=== PATIENT | female | born 1930 | race Caucasian/White ===

== ENCOUNTER 2016-07-06 21:29 | Inpatient (IN) | payer MEDICARE, OTHER ==
--- NOTE | ~2016-07-06 | HP ---
History And Physical [place] [id number] [facility] [place]. [address] NAME: GEORGINA WELDON : 30 STATUS : ADM IN PAT#: [id number] AGE: 86 ADM/REG DATE : 07/06/16 MR#: [id number] REPORT SERV DATE: 07/07/16 DICTATED BY: KELIN BEE DATE: 07/06/16 REPORT STATUS : Draft TRANSCRIBED BY: MODL DATE: 07/06/16 DATE OF ADMISSION: 07/06/2016 IDENTIFYING DATA: An 86-year-old white female, whose PCP is Dr. Dom Ziegler; harp regulator, Dr. Albaro Kaufman. CHIEF COMPLAINT: Dark stools. HISTORY OF PRESENT ILLNESS: This history of present illness is obtained by talking directly with the patient as well as with her two daughters at the bedside, and I reviewed [employer] and I also reviewed [facility] and their records that came with the patient from the [facility] Emergency Room. The patient's daughter states that she began having loose stools on 07/03/2016. They were red in color. Then over the next two days the 07/04/2016 and 07/05/2016, there was less quantity, but they changed to black color. Because of this and progressive leg edema, they brought her to [facility] Emergency Room. The leg edema has been there for at least a few weeks. They described that her PCP increased her Lasix to 40 mg b.i.d., but there really was not much change. The patient has had some diffuse vague mild abdominal pain for the last two to three days. She does not use [id number] anti-inflammatories, but she is on prescription Mobic and prescription Eliquis. I saw in admission H and P on 01/23/2002 when she was admitted with some bright red blood per rectum. That H and P mentioned that previously she had diverticular bleed, at that time, she had a transfusion and a colonoscopy which revealed hemorrhoids and diffuse diverticuli. Biopsies were taken of the erythematous area in the colon to rule out ischemic colitis. REVIEW OF SYSTEMS: Her weight has fluctuated. She has chronic leg pain. She has chronic stable shortness of breath, chronic slow urine stream. She has decreased appetite for the last two days. She wears oxygen 2 L at bedtime p.r.n. She denies fever, cough, chest pain, nausea, vomiting, dysuria, or headache. PAST MEDICAL HISTORY: She has a chart history of intolerance to methimazole and nitroglycerin. There is no history of diabetes, asthma, COPD, seizure, peptic ulcer, liver disease, chronic kidney disease, cancer, or sleep apnea. She had a coronary bypass in 2001. She has had paroxysmal atrial fibrillation and she has had previous bradycardia when she was on atenolol. She has had a multinodular goiter and had radioactive iodine in 2002. She has severe arthritis that has involved her spine, hips, and knees. She has failure to thrive as early as 2012. She had a good rehab for a while. Then in March of this year, she fell, broke her right femur, had surgical repair at [place]. She was in rehab then for about three months after that. She now lives at home again with family. She has hypertension. 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 [address] NAME: GEORGINA WELDON : 30 STATUS : ADM IN PAT#: [id number] AGE: 86 ADM/REG DATE : 07/06/16 MR#: [id number] REPORT SERV DATE: 07/07/16 DICTATED BY: KELIN BEE DATE: 07/06/16 REPORT STATUS : Draft TRANSCRIBED BY: MODKristal DATE: 07/06/16 anything more than just watch it at this time. She has had a hiatal hernia. She has had encephalopathy thought to be due to urinary tract infection. She has had TIAs and she is nearly deaf. HOME MEDICATIONS: Eliquis 5 mg b.i.d., Refresh Tears p.r.n., Colace 100 mg daily, Lasix 20 mg breakfast and lunch, Apresoline 50 mg b.i.d., [place] 5/325 at bedtime, lisinopril 40 mg daily, Ativan 0.5 mg b.i.d. for anxiety, Mobic 7.5 mg daily, Toprol-XL 50 mg daily, Prilosec 20 mg daily, KCl 20 mEq daily, Pravachol 40 mg at bedtime. PAST SURGICAL HISTORY: She has had coronary bypass, cholecystectomy, hysterectomy, tubal ligation, parotid biopsy, and right femur fracture repair. SOCIAL HISTORY: She has no tobacco or alcohol intake history. She is a housewife. She had approximately nine children from what I understand. She lives with family and she has some home health aide. She uses a walker and wheelchair. FAMILY HISTORY: Mother had a stroke. Father, they cannot recall what health problems he had. Her siblings, one of them at least had a liver malignancy. DIAGNOSTIC DATA: From [facility], sodium 132, potassium 3.9, chloride 97, CO2 is 27, BUN is 26, creatinine 1.4, glucose 114. The rest of the CMP was unremarkable other than calcium 8.6. White count 6.5, hemoglobin was 7.7, and by comparison, her hemoglobin here was 12.1 on 12/10/2015, platelets today are 259,000. Lactic acid 1.7. Stool guaiac positive. Urinalysis normal. Troponin 0.03. INR 1.99. PTT 52. D-dimer 579 which is elevated. B-natriuretic peptide 213 which is elevated. EKG done at the [facility] today at 1400 hours, it is regular, it is very difficult to see, but there are very small P waves, I think it is sinus rhythm. She has inferior Q-waves. She has some T-wave inversion in V1 through V3. Compared to her EKG of 06/17/2012, at that time, she was in atrial fibrillation. She did have Q-waves at that point in time. CT scan of the abdomen and pelvis done at [facility], the radiologist report after contrast just diverticuli, no abnormalities other than that. Chest x-ray at [facility], their report was cardiomegaly with some interstitial edema. PHYSICAL EXAMINATION: VITAL SIGNS: Temp is 98, pulse 72, respirations 18, blood pressure 140/62, O2 saturation is 98% on room air. General: Well-developed, older female, who appears at this time in no acute distress. HEENT: Head is atraumatic. Pupils are equal, round, and reactive to light. She appears to have cataract surgical changes. Extraocular motions are intact. No scleral icterus noted. Ears, externally unremarkable. No inflammatory changes noted, but she is extremely hard of hearing bilaterally. Nose, noninflamed externally. Septum midline. Nares patent. Mouth, moist. Good gag. No redness of the throat, gums, or lips. NECK: Supple. No lymph node or thyroid enlargement. The carotids have good pulses. No bruits. LUNGS: Clear. Good air flow. No wheezes, no rhonchi. Normal respiratory effort. History And Physical [address] [place]. [address] NAME: GEORGINA WELDON : 30 STATUS : ADM IN [facility]#: [id number] AGE: 86 ADM/REG DATE : 07/06/16 MR#: [id number] REPORT SERV DATE: 07/07/16 DICTATED BY: KELIN BEE DATE: 07/06/16 REPORT STATUS : Draft TRANSCRIBED BY: WAN DATE: 07/06/16 HEART: Regular rates and rhythm without murmur, gallop, click, or rub. ABDOMEN: Obese. Bowel sounds positive. Soft, nondistended, nontender except minimally in the right lower quadrant and difficult to reproduce. No mass. No organomegaly. No bruits. EXTREMITIES: No clubbing. No cyanosis. She has 3+ edema from her toes to her upper calves bilaterally, some mild erythema. No skin breakdown. No actively inflamed joints. NEUROLOGIC: Alert, oriented, cooperative with grossly normal motor and cranial nerves other than markedly diminished hearing. No Babinski. No clonus noted. ASSESSMENT: 1. Bright red blood per rectum. Then black stools consistent with the gastrointestinal bleed in a patient on Eliquis and Mobic. This could obviously be recurrent diverticular bleed. It could also be upper gastrointestinal bleed or neoplastic bleed or arteriovenous malformation. 2. Acute blood loss anemia. 3. Acute kidney injury in a patient who is taking anti-inflammatory, Mobic. She got contrast in the ER there today. 4. Bilateral leg edema, it could be venous insufficiency or congestive heart failure or chronic kidney disease. 5. See past medical history. PLAN: She is being admitted to the medical floor on telemetry. We will hold her Eliquis at this point in time. We will stop her Mobic. She does look like a good candidate for it anyway. We will consult GI and we will also by family's request consulting Cardiology. We will empirically put her on Protonix IV in case that was being upper GI bleed. I will hold her lisinopril at this point in time and follow up on her creatinine in the morning. RSG/MODL Kelin Bee M.D. / [id number] CC: MD FRANCIA Botello,DOM Kaufman M.D.
--- NOTE | ~2016-07-06 | DS ---
Discharge Summary [facility] [address] [place]. [address] NAME: GEORGINA WELDON : 30 STATUS : DIS IN PAT#: [id number] AGE: 86 ADM/REG DATE : 07/06/16 MR#: [id number] REPORT SERV DATE: 07/11/16 DICTATED BY: CHRISTI ONEIL DATE: 07/10/16 REPORT STATUS : Draft TRANSCRIBED BY: WAN DATE: 07/10/16 ADMISSION DATE: 07/07/2016 DISCHARGE DATE: 07/10/2016 CONDITION ON DISCHARGE: Stable. DISPOSITION: Discharged to home with Home health and home PT/OT. ADVICE ON DISCHARGE: To follow up with Dr. Kaufman, her puppet master, within the next three to four weeks. DIAGNOSES ON DISCHARGE: 1. Acute and severe recurrent lower gastrointestinal bleed from diverticulosis and hemorrhoids - it has resolved at this time and the patient has received few units of blood transfusion. 2. 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 This is stable with medications and EF is preserved with medications. 3. Chronic kidney disease stage 2, stable. 4. Paroxysmal atrial fibrillation. After discussing with family in detail, they strongly feel that the patient does not need to be on anticoagulants at this time because of the severe bleed that she had. They want to resume aspirin in about five to seven days and then see Dr. Kaufman in the next few weeks and then decide on whether to resume anticoagulation or not. This patient's CHADS-VASc Score is high and is at least 3 or more and family understands the risk of taking her off the anticoagulation, but they also are very worried about the GI bleed. At the same time, her HAS-BLED Score is also very high. Hence, at this time, I will leave it to Dr. Kaufman, her puppet master, to resume her anticoagulation or not within the next several weeks after discussing with the family again. For now, she will not be on any blood thinners. I have taken her off even Mobic and advised Tylenol only, twice a day only, p.r.n. only for arthritic pain. Family wants to resume baby aspirin and they can do that within the next five to seven days if no more bleeding is noted. The patient did undergo upper GI or upper endoscopy and lower endoscopy while in the hospital by Dr. Silva. EGD showed completely normal esophagus, stomach, and duodenum. However, the colonoscopy showed severe diffuse diverticulosis involving the entire colon and also internal hemorrhoids, which was probably responsible for the patient's profuse bleed at this time. DISCHARGE MEDICATIONS: Hence, the patient is being sent home in stable condition today and she will be on the following medications for now: She will resume Lasix 20 mg p.o. b.i.d., [place] 5/325 once at bedtime, Ativan 0.5 mg p.o. b.i.d., metoprolol succinate 50 mg once a day, Prilosec 20 mg once a day, potassium 20 mEq once a day, pravastatin 40 mg once a day, Apresoline or hydralazine 50 mg p.o. b.i.d., lisinopril will be held. Hence, the patient's meloxicam, lisinopril, and apixaban are all on hold right now. LABORATORY DATA: The most recent labs that I have on this patient include the following: Discharge Summary [address] [address] NAME: GEORGINA WELDON : 30 STATUS : DIS IN PAT#: [id number] AGE: 86 ADM/REG DATE : 07/06/16 MR#: [id number] REPORT SERV DATE: 07/11/16 DICTATED BY: CHRISTI ONEIL DATE: 07/10/16 REPORT STATUS : Draft TRANSCRIBED BY: MODL DATE: 07/10/16 Today on 07/10/2016, CBC shows a WBC count of 6.7, hemoglobin 10, hematocrit of 29.9, and platelets of 226. Electrolyte profile shows sodium 139, potassium 3.4 which is being corrected. BUN is 12, creatinine is 1.25. Potassium corrected now came back at 3.7, which is normal. Hence, the patient is being sent home in stable condition. I have also given a prescription for BENNY hose stockings and also subcutaneous compression devices as a prescription, so the patient can use both of these at home to further prevent DVTs. I have spent about 40 minutes in coordinating discharge care of this patient including face- to-face encounter and summarizing this discharge. AXEL/WAN Christi Oneil M.D. / [id number] CC: Ceasar Jimenez
--- NOTE | ~2016-07-06 | CN ---
Consultation Report [facility] [address] [place]. [address] NAME: GEORGINA WELDON : 30 STATUS : ADM IN PAT#: [id number] AGE: 86 ADM/REG DATE : 07/06/16 MR#: [id number] REPORT SERV DATE: 07/08/16 DICTATED BY: ADIA TRINIDAD DATE: 07/07/16 REPORT STATUS : Draft TRANSCRIBED BY: MODL DATE: 07/07/16 DATE OF CONSULTATION: 07/07/2016 HISTORY OF PRESENT ILLNESS: This is an 86-year-old white female, admitted with GI bleeding, both dark and bright red blood, on Eliquis. Also, she is having increased pedal edema with some diffuse abdominal cramping. SOCIAL HISTORY: Positive for nonsteroidals, Mobic. Negative for EtOH or nicotine. PAST MEDICAL HISTORY: History of diverticular bleed in 2001, history of coronary artery disease status post CAB, AFib. She has had goiter, treated with radioactive iodine several months ago, had right femur fracture with surgery, has history of hypertension, TIAs, positive guaiac in the ER, status post cholecystectomy, hysterectomy, tubal. FAMILY HISTORY: Negative for colon cancer. LABORATORY AND DIAGNOSTIC DATA: White count 6500, hemoglobin 7.7, platelets 255,000. INR 1.99. CT revealing diverticular disease. PHYSICAL EXAMINATION: GENERAL: Elderly, hard of hearing white female, but alert. HEENT: Anicteric. NECK: Negative. CHEST: Clear to percussion. HEART: Irregular rhythm. ABDOMEN: Soft, nontender. Bowel sounds are present. EXTREMITIES/NEUROLOGIC: Pertinent for being hard of hearing. ASSESSMENT: 1. Gastrointestinal bleed, dark stools, bright red blood. On Eliquis and Mobic. 2. History of diverticular bleed in the past. Hemoglobin 7.7. 3. Some abdominal pain, which is improving. 4. Coronary artery disease status post CAB, atrial fibrillation, congestive heart failure. 5. Recent right femur fracture with surgery. 6. Hypertension. 7. History of transient ischemic attack. 8. Acute renal insufficiency. SUGGESTION: 1. Agree with holding Mobic and Eliquis for now. 2. Continue Protonix. 3. Follow up H and H posttransfusion. 4. EGD later in the week and has been off Eliquis. We will follow with you. Thank you very much for the consultation. Consultation Report [facility] [address] [place] [address] [address] NAME: GEORGINA WELDON : 30 STATUS : ADM IN PAT#: [id number] AGE: 86 ADM/REG DATE : 07/06/16 MR#: [id number] REPORT SERV DATE: 07/08/16 DICTATED BY: ADIA TRINIDAD DATE: 07/07/16 REPORT STATUS : Draft TRANSCRIBED BY: WAN DATE: 07/07/16 DC/WAN Adia Trinidad M.D. / [id number] CC: Ceasar Jimenez ANDREW James C. Balvich, MD
--- NOTE | ~2016-07-06 | EGD ---
EGD REPORT [facility] [address] [place] [place] [address] NAME: GEORGINA WELDON : 30 STATUS : ADM IN PAT#: [id number] AGE: 86 ADM/REG DATE : 07/06/16 MR#: [id number] REPORT SERV DATE: 07/09/16 DICTATED BY: ADIA TRINIDAD DATE: 07/09/16 REPORT STATUS : Draft TRANSCRIBED BY: [employer] DATE: 07/09/16 [facility]oscopy Center Patient Name: Georgina Weldon Date of : 1930 Attending MD: ADIA TRINIDAD MD Procedure Date No Time: 07/09/2016 Procedure: Colonoscopy Indications: Hematochezia Medicines: as per anesthesia Complications: No immediate complications. Procedure: Pre-Anesthesia Assessment: - ASA Grade Assessment: III - A patient with severe systemic disease. After I obtained informed consent, the scope was passed under direct vision. Throughout the procedure, the patient's blood pressure, pulse, and oxygen saturations were monitored continuously. The PCF [id number] was introduced through the anus and advanced to the cecum, identified by appendiceal orifice and ileocecal valve. The colonoscopy was performed without difficulty. The patient tolerated the procedure. The quality of the bowel preparation was adequate to identify polyps. Findings: The perianal and digital rectal examinations were normal. Multiple small and large-mouthed diverticula were found in the sigmoid colon, in the descending colon, in the transverse colon and in the ascending colon. Internal hemorrhoids were found during endoscopy and were mild. Impression: - Diverticulosis in the sigmoid colon, in the descending colon, in the transverse colon and in the ascending colon. - Internal hemorrhoids. Recommendation: - Continue present medications. Procedure Code(s): --- Professional --- 22423, Colonoscopy, flexible, proximal to splenic flexure; diagnostic, with or without collection of specimen(s) by brushing or washing, with or without colon decompression (separate procedure) Diagnosis Code(s): --- Professional --- K64.8, Other hemorrhoids EGD REPORT [place] [address] [address] NAME: GEORGINA WELDON : 30 STATUS : ADM IN [facility]#: [id number] AGE: 86 ADM/REG DATE : 07/06/16 MR#: [id number] REPORT SERV DATE: 07/09/16 DICTATED BY: ADIA TRINIDAD. DATE: 07/09/16 REPORT STATUS : Draft TRANSCRIBED BY: [employer] DATE: 07/09/16 K57.30, Diverticulosis of large intestine without perforation or abscess without bleeding K92.1, Melena CPT copyright 2013 [employer]. All rights reserved. The codes documented in this report are preliminary and upon room service server review may be revised to meet current compliance requirements. ADIA TRINIDAD MD 07/09/2016 2:05 PM This report has been signed electronically. Number of Addenda: 0 Note Initiated On: 07/09/2016 1:29 PM Scope Withdrawal Time 0 hours 7 minutes 29 seconds [address] [id number]
--- NOTE | ~2016-07-06 | EGD ---
EGD REPORT [facility] [address] [place] [address] NAME: GEORGINA WELDON : 30 STATUS : ADM IN PAT#: [id number] AGE: 86 ADM/REG DATE : 07/06/16 MR#: [id number] REPORT SERV DATE: 07/09/16 DICTATED BY: ADIA TRINIDAD DATE: 07/09/16 REPORT STATUS : Draft TRANSCRIBED BY: [employer] DATE: 07/09/16 [facility] Center Patient Name: Georgina Weldon Date of : 1930 Attending MD: ADIA TRINIDAD MD Procedure Date No Time: 07/09/2016 Procedure: Upper GI endoscopy Indications: Hematochezia, Melena Medicines: as per anesthesia Complications: No immediate complications. Procedure: Pre-Anesthesia Assessment: - ASA Grade Assessment: III - A patient with severe systemic disease. After obtaining informed consent, the endoscope was passed under direct vision. Throughout the procedure, the patient's blood pressure, pulse, and oxygen saturations were monitored continuously. The GIF H190 [id number] was introduced through the mouth, and advanced to the third part of duodenum. The upper GI endoscopy was accomplished without difficulty. The patient tolerated the procedure. Findings: The examined esophagus was normal. The entire examined stomach was normal. The cardia and gastric fundus were normal on retroflexion. The examined duodenum was normal. Impression: - Normal esophagus. - Normal stomach. - Normal examined duodenum. Recommendation: - Continue present medications. Procedure Code(s): --- Professional --- 55515, Esophagogastroduodenoscopy, flexible, transoral; diagnostic, including collection of specimen(s) by brushing or washing, when performed (separate procedure) Diagnosis Code(s): --- Professional --- K92.1, Melena CPT copyright 2013 [employer]. All rights reserved. EGD REPORT [facility] [address] [address] NAME: GEORGINA WELDON : 30 STATUS : ADM IN [facility]#: [id number] AGE: 86 ADM/REG DATE : 07/06/16 MR#: [id number] REPORT SERV DATE: 07/09/16 DICTATED BY: ADIA TRINIDAD. DATE: 07/09/16 REPORT STATUS : Draft TRANSCRIBED BY: [employer] DATE: 07/09/16 The codes documented in this report are preliminary and upon diesel engine pipe fitter review may be revised to meet current compliance requirements. ADIA TRINIDAD MD 07/09/2016 1:42 PM This report has been signed electronically. Number of Addenda: 0 Note Initiated On: 07/09/2016 1:25 PM Scope Withdrawal Time 0 hours 0 minutes 0 seconds [address] [id number]
--- NOTE | ~2016-07-06 | CN ---
Consultation Report [facility] [address] [place]. [address] NAME: GEORGINA WELDON : 30 STATUS : ADM IN PAT#: [id number] AGE: 86 ADM/REG DATE : 07/06/16 MR#: [id number] REPORT SERV DATE: 07/07/16 DICTATED BY: ROXANNE JACOBS DATE: 07/07/16 REPORT STATUS : Draft TRANSCRIBED BY: WAN DATE: 07/07/16 CARDIOLOGY CONSULTATION NOTE DATE OF CONSULTATION: 07/07/2016 REASON FOR CONSULTATION: Acute systolic heart failure and acute GI bleed in a patient with known coronary heart disease and paroxysmal atrial fibrillation. HISTORY OF PRESENT ILLNESS: Ms. Weldon is an 86-year-old woman, who is a patient of Dr. Albaro Kaufman. The patient has a history of coronary artery disease, status post coronary artery bypass grafting surgery in the year 2010. Her left ventricular ejection fraction was most recently estimated at 40% by cardiac catheterization. The patient is a poor historian, being extremely hard of hearing. Her daughter is at bedside however. The patient apparently has no known history of congestive heart failure. The patient was in her usual state of health until approximately two weeks ago. She began develop worsening shortness of breath and lower extremity edema. The patient is using oxygen at night. The patient apparently has had bright red blood per rectum about two weeks ago as well, though this resolved. The patient later developed dark black tarry stool consistent with melena. She presented to [facility] Emergency Room with generalized weakness and was found to have severe anemia. The patient had guaiac-positive stool. She has been referred to [facility] for further workup for suspected acute GI bleed. At this time, the patient is resting quietly. She denies acute shortness of breath. She denies chest pain. PAST MEDICAL HISTORY: 1. Coronary artery disease, status post coronary artery bypass grafting surgery. 2. Paroxysmal atrial fibrillation. 3. History of previous diverticular bleeding. 4. Osteoarthritis. 5. Chronic hearing loss. 6. Multinodular goiter, status post radioactive iodine ablation. 7. Hypertension. 8. Ischemic cardiomyopathy with baseline ejection fraction of 40%. 9. Transient ischemic attack. PAST SURGICAL HISTORY: 1. Coronary artery bypass grafting surgery in the year 2001. The patient apparently had 3- vessel bypass including a TABOR to lad, saphenous vein graft to the obtuse marginal, and saphenous vein graft to the right posterior descending artery. The patient underwent coronary angiography in 2010 showing the TABOR graft was atretic, though with no significant high-grade disease of the left anterior descending excepting a diagonal branch. The patient's other two bypass grafts were patent at that time. 2. Femoral fracture, status post repair. 3. Biopsy of right parotid tumor. 4. The patient has had cholecystectomy, hysterectomy, bilateral tubal ligation. Consultation Report [address] [place]. [address] NAME: GEORGINA WELDON : 30 STATUS : ADM IN PAT#: [id number] AGE: 86 ADM/REG DATE : 07/06/16 MR#: [id number] REPORT SERV DATE: 07/07/16 DICTATED BY: ROXANNE JACOBS DATE: 07/07/16 REPORT STATUS : Draft TRANSCRIBED BY: WAN DATE: 07/07/16 FAMILY HISTORY: Negative for early coronary heart disease or sudden cardiac . SOCIAL HISTORY: The patient has no significant history of tobacco, alcohol, or drug use. 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 ALLERGIES: THE PATIENT HAS DOCUMENTED ALLERGIES TO METHIMAZOLE AND NITROGLYCERIN. HOME MEDICATIONS: 1. Eliquis 5 mg p.o. twice daily. 2. Artificial tears to both eyes as needed. 3. Colace 100 mg p.o. q.a.m. 4. Lasix 20 mg p.o. q.a.m. 5. Hydralazine 50 mg p.o. twice daily. 6. Hydrocodone/acetaminophen one p.o. at bedtime. 7. Lisinopril 40 mg p.o. at bedtime. 8. Ativan 0.5 mg p.o. twice daily. 9. Mobic 7.5 mg p.o. q.a.m. 10.Toprol-XL 50 mg p.o. q.a.m. 11.Omeprazole 20 mg p.o. q.a.m. 12.Potassium chloride 20 mEq p.o. q.a.m. 13.Pravachol 40 mg p.o. at bedtime. REVIEW OF SYSTEMS: An abbreviated review of systems was performed, as the patient is a very difficult historian being quite hard of hearing. However this is noncontributory except for the pertinent positives and negatives noted in the history of present illness above. PHYSICAL EXAMINATION: VITAL SIGNS: Temperature is 97.4 degrees Fahrenheit, blood pressure is 135/62 mmHg, heart rate is 64 beats per minute and regular, respirations 18, and oxygen saturation is 96% on 2 L nasal cannula. CONSTITUTIONAL: The patient is an obese elderly white woman, who is asleep on my initial exam, but easily arousable. She is in no acute distress. EYES: PERRL, EOMI, clear conjunctiva. HEAD/MNT: NCAT with moist mucous membranes and grossly normal hard and soft palate. NECK: Supple with no obvious thyromegaly or lymphadenopathy CARDIOVASCULAR: There is a regular rhythm with a normal S1 and a physiologically split second heart sound. The jugular venous pressure does appear to be elevated to approximately 10-12 cm. No significant murmurs are noted. PULMONARY: Grossly clear to auscultation bilaterally with no wheezing, rales, rhonchi, or dullness to percussion noted. ABDOMINAL: Soft, non-tender, non-distended with no hepatosplenomegaly noted. EXTREMITIES: There is 2+ pitting edema below the knees bilaterally. No clubbing or Consultation Report [address] [address] NAME: GEORGINA WELDON : 30 STATUS : ADM IN [facility]#: [id number] AGE: 86 ADM/REG DATE : 07/06/16 MR#: [id number] REPORT SERV DATE: 07/07/16 DICTATED BY: ROXANNE JACOBS DATE: 07/07/16 REPORT STATUS : Draft TRANSCRIBED BY: WAN DATE: 07/07/16 cyanosis is noted. MUSCULOSKELETAL: Grossly normal strength and range of motion in all extremities INTEGUMENTARY: Skin appears intact with no bruises, wounds or active lesions noted NEURO/PSYC: Alert and oriented x3, with no dysarthria, facial droop or lateralizing weakness noted. DIAGNOSTIC STUDIES: 12-lead EKG: The patient's 12-lead EKG from [facility]'s ER shows normal sinus rhythm with evidence of inferoposterior myocardial infarction and no other acute changes. In comparison to a previous tracing, the patient previously has had a right bundle-branch block which is not present on the current EKG. The inferoposterior ND is old. Chest x-ray: Chest x-ray at [facility] was reported as pulmonary edema and cardiomegaly. LABORATORY DATA: Labs from [facility] show a sodium of 133, potassium 3.9, chloride is 97, CO2 27, calcium is 8.6, glucose 114, BUN 26, creatinine 1.4, albumin is 3.3. Cell count show a white blood cell count of 6.5, hemoglobin 7.7, hematocrit 23, platelets 259. Lactic acid is 1.7. Occult blood is positive. Urinalysis is normal. Troponin I is 0.03. INR is 1.99. B-type natriuretic peptide is mildly elevated at 213 with a D-dimer of 579. ASSESSMENT AND PLAN: 1. Acute gastrointestinal bleed: The patient is currently being transfused. She may proceed with upper and lower endoscopy without further cardiovascular workup. 2. Acute systolic heart failure: The patient is on Lasix at home, though her daughter denies any previous history of systolic congestive heart failure. A transthoracic echocardiogram will be obtained to evaluate the patient's left ventricular systolic function. We will discontinue p.o. Lasix, and start Bumex 1 mg IV q.12 hours for evidence of volume overload. The patient will continue hydralazine. We will repeat a basic metabolic profile, and consider addition of an WILFRID inhibitor if the patient's renal function will allow this. 3. Coronary artery disease. Given the patient's advanced age, continuing pravastatin as the evidence based for high-potency statin therapy is lacking in this population. The patient is without symptoms of angina. Myocardial infarction has been ruled out. 4. Paroxysmal atrial fibrillation: [id number] of 7 for age, female gender, coronary artery disease, hypertension, congestive heart failure, and previous TIA. The patient is at high stroke risk. Depending on upper and lower endoscopy findings, we will discuss starting Eliquis with the primary service. Thank you for allowing me to participate in the care of Ms. Weldon. The Cardiology Service will continue to follow the patient closely during this hospitalization. Consultation Report [address] [place]. [address] NAME: GEORGINA WELDON : 30 STATUS : ADM IN [facility]#: [id number] AGE: 86 ADM/REG DATE : 07/06/16 MR#: [id number] REPORT SERV DATE: 07/07/16 DICTATED BY: ROXANNE JACOBS DATE: 07/07/16 REPORT STATUS : Draft TRANSCRIBED BY: WAN DATE: 07/07/16 [facility] Roxanne Jacobs MD / [id number] CC: Ceasar Jimenez
[~2016-07-06 21:29] MED LIST: APRES50 PO; ASAB PO; ATV1 PO; CRESTOR10 PO; FISH OIL1200 MG PO; JANTOVEN1 MG PO; K-TABS10 MEQ PO; L20 PO; MOBIC7.5 PO; PRILO PO; PRIN20 PO; T PO; TOPXL50 PO
[2016-07-06] MEDS ORDERED: PRILO PO (22:42)
[2016-07-06] MEDS ORDERED: TOPXL50 PO (22:42)
[2016-07-06] MEDS ORDERED: L20 PO (22:42)
[2016-07-06] MEDS ORDERED: MOBIC7.5 PO (22:43)
[2016-07-06] MEDS ORDERED: DSS PO (22:43)
[2016-07-06] MEDS ORDERED: APRES50 PO (22:43)
[2016-07-06] MEDS ORDERED: KLOR-CON M2020 MEQ PO (22:44)
[2016-07-06] MEDS ORDERED: ELIQUIS 5 MG TAB5 MG PO (22:44)
[2016-07-06] MEDS ORDERED: ATV.5 PO (22:44)
[2016-07-06] MEDS ORDERED: NORCO1 TA1 PO (22:45)
[2016-07-06] MEDS ORDERED: PRAVACHOL40 MG PO (22:45)
[2016-07-06] MEDS ORDERED: LISINOPRIL40 MG PO (22:45)
[2016-07-06] MEDS ORDERED: REFRESH OPH (22:46)
[2016-07-07 02:40] LABS: HEMATOCRIT 21.1 % (36.0-48.0); HEMOGLOBIN 6.8 g/dL (12.0-16.0)
[2016-07-07 02:51] LABS: PHOSPHORUS, SERUM 3.4 MG/DL (2.5-4.5)
[2016-07-07 16:04] LABS: HEMATOCRIT 30.3 % (36.0-48.0); HEMOGLOBIN 10.3 g/dL (12.0-16.0)
[2016-07-07 16:33] LABS: ALKALINE PHOSPHATASE 113 U/L (45-117); CALCIUM, SERUM 8.6 MG/DL (8.5-10.4); CHLORIDE, SERUM 102 MMOL/L (96-112); CO2 (CARBON DIOXIDE) 28 MMOL/L (24-34); CREATININE 1.29 MG/DL (0.55-1.02); FREE T4 1.54 NG/DL (0.76-1.46); GFR AFRICAN AMERICAN 43 ML/MIN (>=60); GFR NON AFRICAN AMERICAN 37 ML/MIN (>=60); GLUCOSE, SERUM 86 MG/DL (60-99); POTASSIUM, SERUM 3.8 MMOL/L (3.5-5.3); SGOT(AST) 15 U/L (5-40); SGPT(ALT) 8 U/L (5-65); SODIUM, SERUM 140 MMOL/L (135-148); TOTAL BILIRUBIN 0.9 MG/DL (0-1.2); TOTAL PROTEIN 6.3 G/DL (6.0-8.5)
[2016-07-07 16:35] LABS: ALBUMIN 3.1 G/DL (3.5-5.0); BUN (BLOOD UREA NITROGEN) 19 MG/DL (6-23); GLOBULIN 3.2 G/DL (2.5-4.1)
[2016-07-08 02:12] LABS: BASOPHILS 0.5 %; BASOPHILS ABSOLUTE 0.03 10/3/uL (0.0-0.16); EOSINOPHILS ABSOLUTE 0.51 10/3/uL (0.0-0.53); HEMATOCRIT 28.6 % (36.0-48.0); HEMOGLOBIN 9.7 g/dL (12.0-16.0); IMMATURE GRANULOCYTES 0.2 %; IMMATURE GRANULOCYTES ABSOLUTE 0.01 10/3/uL (0.0-0.11); LYMPHOCYTES 27.7 %; LYMPHOCYTES ABSOLUTE 1.57 10/3/uL (0.67-4.30); MEAN CORPUS HGB CONC 33.9 g/dL (32.0-36.0); MEAN CORPUSCULAR HEMOGLOB 28.9 pg (26.0-34.0); MEAN PLATELET VOLUME 7.9 fL (9.2-13.0); MONOCYTES 15.3 %; MONOCYTES ABSOLUTE 0.87 10/3/uL (0.21-1.20); NEUTROPHILS 47.3 %; NEUTROPHILS ABSOLUTE 2.68 10/3/uL (2.02-8.40); PLATELET COUNT 203 10/3/uL (150-400); RBC DISTRIBUTION WIDTH 16.7 % (12.0-16.0); RED CELL COUNT 3.36 10/6/uL (4.0-5.6); WHITE BLOOD CELLS 5.7 10/3/uL (4.5-10.5)
[2016-07-08 02:14] LABS: MEAN CORPUSCULAR VOLUME 85.1 fL (80-100)
[2016-07-08 02:15] LABS: MANUAL DIFF NO %
[2016-07-08 02:36] LABS: BUN (BLOOD UREA NITROGEN) 18 MG/DL (6-23); CALCIUM, SERUM 8.3 MG/DL (8.5-10.4); CHLORIDE, SERUM 103 MMOL/L (96-112); CO2 (CARBON DIOXIDE) 28 MMOL/L (24-34); CREATININE 1.27 MG/DL (0.55-1.02); GFR AFRICAN AMERICAN 44 ML/MIN (>=60); GFR NON AFRICAN AMERICAN 38 ML/MIN (>=60); GLUCOSE, SERUM 91 MG/DL (60-99); POTASSIUM, SERUM 3.4 MMOL/L (3.5-5.3); SODIUM, SERUM 142 MMOL/L (135-148); TROPONIN I 0.02 NG/ML (<0.05)
[2016-07-09 05:36] LABS: BASOPHILS 0.5 %; BASOPHILS ABSOLUTE 0.03 10/3/uL (0.0-0.16); EOSINOPHILS 8.7 %; EOSINOPHILS ABSOLUTE 0.52 10/3/uL (0.0-0.53); HEMATOCRIT 28.8 % (36.0-48.0); HEMOGLOBIN 9.7 g/dL (12.0-16.0); IMMATURE GRANULOCYTES 0.2 %; IMMATURE GRANULOCYTES ABSOLUTE 0.01 10/3/uL (0.0-0.11); LYMPHOCYTES 27.4 %; LYMPHOCYTES ABSOLUTE 1.63 10/3/uL (0.67-4.30); MEAN CORPUS HGB CONC 33.7 g/dL (32.0-36.0); MEAN CORPUSCULAR HEMOGLOB 28.9 pg (26.0-34.0); MEAN CORPUSCULAR VOLUME 85.7 fL (80-100); MEAN PLATELET VOLUME 7.9 fL (9.2-13.0); MONOCYTES 15.3 %; MONOCYTES ABSOLUTE 0.91 10/3/uL (0.21-1.20); NEUTROPHILS 47.9 %; NEUTROPHILS ABSOLUTE 2.85 10/3/uL (2.02-8.40); PLATELET COUNT 211 10/3/uL (150-400); RBC DISTRIBUTION WIDTH 16.6 % (12.0-16.0); RED CELL COUNT 3.36 10/6/uL (4.0-5.6)
[2016-07-09 05:37] LABS: MANUAL DIFF NO %
[2016-07-09 05:41] LABS: CALCIUM, SERUM 8.5 MG/DL (8.5-10.4); CHLORIDE, SERUM 103 MMOL/L (96-112); CO2 (CARBON DIOXIDE) 26 MMOL/L (24-34); CREATININE 1.17 MG/DL (0.55-1.02); GFR AFRICAN AMERICAN 49 ML/MIN (>=60); GFR NON AFRICAN AMERICAN 42 ML/MIN (>=60); GLUCOSE, SERUM 102 MG/DL (60-99); POTASSIUM, SERUM 3.4 MMOL/L (3.5-5.3); SODIUM, SERUM 139 MMOL/L (135-148)
[2016-07-09 05:43] LABS: BUN (BLOOD UREA NITROGEN) 12 MG/DL (6-23)
[2016-07-09 18:12] LABS: HEMOGLOBIN 10.8 g/dL (12.0-16.0)
[2016-07-10 05:32] LABS: BASOPHILS 0.4 %; BASOPHILS ABSOLUTE 0.03 10/3/uL (0.0-0.16); EOSINOPHILS 7.5 %; HEMATOCRIT 29.9 % (36.0-48.0); IMMATURE GRANULOCYTES 0.1 %; IMMATURE GRANULOCYTES ABSOLUTE 0.01 10/3/uL (0.0-0.11); LYMPHOCYTES 24.3 %; LYMPHOCYTES ABSOLUTE 1.62 10/3/uL (0.67-4.30); MEAN CORPUS HGB CONC 33.4 g/dL (32.0-36.0); MEAN CORPUSCULAR HEMOGLOB 28.2 pg (26.0-34.0); MEAN CORPUSCULAR VOLUME 84.5 fL (80-100); MEAN PLATELET VOLUME 8.2 fL (9.2-13.0); MONOCYTES 16.3 %; MONOCYTES ABSOLUTE 1.09 10/3/uL (0.21-1.20); NEUTROPHILS 51.4 %; NEUTROPHILS ABSOLUTE 3.42 10/3/uL (2.02-8.40); PLATELET COUNT 226 10/3/uL (150-400); RBC DISTRIBUTION WIDTH 16.6 % (12.0-16.0); RED CELL COUNT 3.54 10/6/uL (4.0-5.6); WHITE BLOOD CELLS 6.7 10/3/uL (4.5-10.5)
[2016-07-10 05:37] LABS: MANUAL DIFF NO %
[2016-07-10 05:40] LABS: BUN (BLOOD UREA NITROGEN) 12 MG/DL (6-23); CALCIUM, SERUM 8.6 MG/DL (8.5-10.4); CHLORIDE, SERUM 102 MMOL/L (96-112); CO2 (CARBON DIOXIDE) 26 MMOL/L (24-34); CREATININE 1.25 MG/DL (0.55-1.02); GFR AFRICAN AMERICAN 45 ML/MIN (>=60); GFR NON AFRICAN AMERICAN 39 ML/MIN (>=60); GLUCOSE, SERUM 97 MG/DL (60-99); POTASSIUM, SERUM 3.4 MMOL/L (3.5-5.3); SODIUM, SERUM 139 MMOL/L (135-148)
[2016-07-10] MEDS ORDERED: ACETSUP650 PR (11:53)
[2016-07-10] MEDS ORDERED: ASAB PO (11:54)
== END 2016-07-10 14:36 | disposition home health service (06) | DRG 377 ==
LOC: 7NO 21:29
PROVIDERS: Internal Medicine; Internal Medicine Cardiovascular Disease; Internal Medicine Gastroenterology
PROC: 30233N1 Transfusion of Nonautologous Red Blood Cells into Peripheral Vein, Percutaneous Approach (ICD-10-PCS; 2016-07-07)
PROC: 0DJ08ZZ Inspection of Upper Intestinal Tract, Via Natural or Artificial Opening Endoscopic (ICD-10-PCS; principal; 2016-07-09 12:00)
PROC: 0DJD8ZZ Inspection of Lower Intestinal Tract, Via Natural or Artificial Opening Endoscopic (ICD-10-PCS; 2016-07-09 12:00)
DX: K57.31 Diverticulosis of large intestine without perforation or abscess with bleeding (principal); I50.43 Acute on chronic combined systolic (congestive) and diastolic (congestive) heart failure; N17.9 Acute kidney failure, unspecified; I13.0 Hypertensive heart and chronic kidney disease with heart failure and stage 1 through stage 4 chronic kidney disease, or unspecified chronic kidney disease; D62 Acute posthemorrhagic anemia; I48.0 Paroxysmal atrial fibrillation; K64.8 Other hemorrhoids; I25.10 Atherosclerotic heart disease of native coronary artery without angina pectoris; H91.90 Unspecified hearing loss, unspecified ear; I25.5 Ischemic cardiomyopathy; T39.395A Adverse effect of other nonsteroidal anti-inflammatory drugs [NSAID], initial encounter; N18.2 Chronic kidney disease, stage 2 (mild); R62.7 Adult failure to thrive; M16.0 Bilateral primary osteoarthritis of hip; M47.9 Spondylosis, unspecified; Z95.1 Presence of aortocoronary bypass graft; Z90.49 Acquired absence of other specified parts of digestive tract; Z90.710 Acquired absence of both cervix and uterus; Z86.73 Personal history of transient ischemic attack (TIA), and cerebral infarction without residual deficits
CPT/HCPCS: 36415; 80048; 80053; 82962; 83735; 83880; 84100; 84132; 84439; 84443; 84484; 85014; 85018; 85025; 86850; 86900; 86901; 86920; A9270-GY; C8929; C9113; J0360; J1940; P9016; Q9957